=== PATIENT | male | born 1990 | race Caucasian/White ===

== ENCOUNTER 2020-04-02 21:44 | Emergency (ER) | payer MEDICAID, OTHER ==
[~2020-04-02] VITALS: Ht 193 cm; Wt 131.1 kg
[~2020-04-02 21:44] MED LIST: AZIT250T PO
[2020-04-02 21:52] VITALS: BP 134/90
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
--- NOTE | 2020-04-02 23:08 | NUR ---
PT IS NOT IN ROOM, PER REGISTRATION PT LEFT
== END 2020-04-02 23:10 | disposition left against medical advice (07) ==
LOC: ER 21:45
DX: S51.812A Laceration without foreign body of left forearm, initial encounter (principal); Z88.0 Allergy status to penicillin; Z88.1 Allergy status to other antibiotic agents; Z79.2 Long term (current) use of antibiotics; W45.8XXA Other foreign body or object entering through skin, initial encounter; Y93.89 Activity, other specified; Y92.89 Other specified places as the place of occurrence of the external cause; Y99.8 Other external cause status
CPT/HCPCS: 99281; 99282

== ENCOUNTER 2024-07-14 16:52 | Emergency (ER) | payer OTHER ==
[~2024-07-14] VITALS: Ht 193 cm; Wt 123.5 kg
[2024-07-14 17:35] VITALS: PULSE 99
[2024-07-14] MEDS ORDERED: ibuprofen tablet 400 MG TABLET PO ONE (18:20)
[2024-07-14] MEDS ORDERED: acetaminophen 325mg tablet PO ONE (18:20)
[2024-07-14 19:01] VITALS: BP 125/78; RESP 16; TEMP 98.5; O2SAT 98
== END 2024-07-14 19:03 | disposition home or self-care (01) ==
LOC: ER 16:53
DX: M54.2 Cervicalgia (principal); M54.9 Dorsalgia, unspecified; Z88.0 Allergy status to penicillin; Z88.1 Allergy status to other antibiotic agents; Z79.2 Long term (current) use of antibiotics; V89.2XXA Person injured in unspecified motor-vehicle accident, traffic, initial encounter; Y93.89 Activity, other specified; Y92.89 Other specified places as the place of occurrence of the external cause; Y99.8 Other external cause status
CPT/HCPCS: 72040; 72070; 72100; 99284